=== PATIENT | male | born 1960 | race African-American/Black ===

== ENCOUNTER 2016-05-26 16:08 | Emergency (ER) | payer OTHER ==
[2016-05-26 16:12] VITALS: BP 138/80; PULSE 95; TEMP 98; BMI 29.3
--- NOTE | 2016-05-26 17:13 | PDOC ---
History of Present Illness - General Chief Complaint: Pain Stated Complaint: INJURY Time Seen by Provider: 05/26/16 16:32 History Source: Patient Exam Limitations: No Limitations - History of Present Illness Initial Comments: 05/26/16 17:09 55-year-old male presents to the ED with complaints of thumb pain after playing slots yesterday. Patient states Hitting it on the button and states pain was there yesterday but continues to today and decided come to the ER since every time he bends and opens it, he feels a clicking sound. Patient denies previous injury to the affected area, radiation of pain, sensory changes distal of injury. Patient states history of prediabetes and takes Glucophage daily. Timing/Duration: 24 hours Severity: mild Associated Symptoms: reports: denies symptoms Past History - Past Medical History Allergies/Adverse Reactions: Allergies Allergy/AdvReac Type Severity Reaction Status Date / Time No Known Allergies Allergy Verified 05/26/16 16:13 Home Medications: Ambulatory Orders NK [No Known Home Medication] 05/26/16 Asthma: Yes - Psycho/Social/Smoking Cessation Hx Suicidal Ideation: No Smoking History: Current every day smoker Number of Cigarettes Smoked Daily: 10 Information on smoking cessation initiated: No Patient Lives Alone: No Lives with/in: spouse/SO Review of Systems - Review of Systems Able to Perform ROS?: Yes Constitutional: No: Symptoms Reported ABD/GI: No: Symptoms Reported Musculoskeletal: Yes: Joint Pain (right thumb DIP joint ) Integumentary: No: Symptoms Reported Neurological: No: Symptoms reported Endocrine: No: Symptoms Reported Hematologic/Lymphatic: No: Symptoms Reported *Physical Exam - Vital Signs Last Vital Signs Temp Pulse Resp BP Pulse Ox 98 F 95 H 18 138/80 97 05/26/16 16:10 05/26/16 16:10 05/26/16 16:10 05/26/16 16:10 05/26/16 16:10 - Physical Exam General Appearance: Yes: Nourished, Appropriately Dressed. No: Apparent Distress Extremity: positive: Normal Capillary Refill, Normal Inspection, Normal Range of Motion, Tender (over right DIP joint . Noted clicking with flexion at the DIP joint) Integumentary: positive: Normal Color, Warm, Moist Neurologic: positive: Motor Strength 5/5 (rt hand grasp, ambulatory) ED Treatment Course - RADIOLOGY Radiology Studies Ordered: Category Date Time Status FINGER(S) RIGHT [RAD] Stat Radiology 05/26/16 17:00 Ordered Medical Decision Making - Medical Decision Making 05/26/16 17:17 Patient here with complaints of right thumb injury after playing [place] this [place] last [place]. Patient states pain is worsened with movement but denies pain at rest. Patient exam had tenderness at the DIP but noted clicking with flexion. Patient ordered for x-ray patient offered Motrin but states is comfortable presently 05/26/16 17:47 X-ray negative for acute findings. Patient be placed in metal thumb splint and told to rest for the next 3 days. *DC/Admit/Observation/Transfer Diagnosis at time of Disposition: Pain in thumb joint with movement Qualifiers: Laterality: right Qualified Code(s): M79.644 - Pain in right finger(s) - Discharge Dispostion Disposition: HOME Condition at time of disposition: Good - Referrals Referrals: Eddie Guzmán MD [Primary Care Provider] - - Patient Instructions Printed Discharge Instructions: DI for Finger Sprain Additional Instructions: Please allow your finger to rest wearing the metal splint for the next 2 days during the day and remove it at night. If pain continues greater than 5 days consider follow-up with orthopedist as this may need an MRI.
== END 2016-05-26 17:52 | disposition home or self-care (01) ==
LOC: JERFT 16:08
PROC: 2W3JX1Z Immobilization of Right Finger using Splint (ICD-10-PCS; principal; 2016-05-26)
DX: M79.644 Pain in right finger(s) (principal); M70.841 Other soft tissue disorders related to use, overuse and pressure, right hand; Y93.89 Activity, other specified; Y92.59 Other trade areas as the place of occurrence of the external cause; E11.9 Type 2 diabetes mellitus without complications; Z79.84 Long term (current) use of oral hypoglycemic drugs; J45.909 Unspecified asthma, uncomplicated; F17.210 Nicotine dependence, cigarettes, uncomplicated
CPT/HCPCS: 29130; 73140-TC-RT; 99281-25

== ENCOUNTER 2017-11-08 20:31 | Emergency (ER) | payer OTHER ==
[2017-11-08 20:51] VITALS: BP 145/78; PULSE 98; TEMP 97.9; BMI 28.4
[2017-11-08] MEDS ORDERED: KETOROLAC TROMETHAMINE 60 MG/2 ML VIAL IM ONE (21:27)
[2017-11-08] MEDS ORDERED: KETOROLAC TROMETHAMINE 60 MG/2 ML VIAL ONE (21:31)
--- NOTE | 2017-11-08 21:33 | PDOC ---
History of Present Illness - General Chief Complaint: Wound Stated Complaint: BITE Time Seen by Provider: 11/08/17 21:26 History Source: Patient Exam Limitations: Clinical Condition - History of Present Illness Initial Comments: 11/08/17 21:27 Patient with history of diabetes presenting with complain of insect bite to left thigh area which is now gone and worse with redness to the area and pain with ambulation. Patient reports he thought he had a mosquito bite and he scratched it and now is spread with drainage coming from the site. Denies fever or chills, bodyaches, dizziness. Denies any other symptoms Timing/Duration: 24 hours Past History - Past Medical History Allergies/Adverse Reactions: Allergies Allergy/AdvReac Type Severity Reaction Status Date / Time No Known Allergies Allergy Verified 05/26/16 16:13 Home Medications: Ambulatory Orders Amoxicillin/Potassium Clav [Augmentin 875-125 Tablet] 1 each PO BID 7 Days #14 tablet 11/08/17 Mupirocin Ointment [Bactroban 2% Ointment -] 1 applic TP BID 7 Days #1 tube Asthma: Yes COPD: No Diabetes: Yes - Suicide/Smoking/Psychosocial Hx Smoking History: Current every day smoker Have you smoked in the past 12 months: Yes Number of Cigarettes Smoked Daily: 10 Information on smoking cessation initiated: No Hx Alcohol Use: No Drug/Substance Use Hx: No Substance Use Type: None Review of Systems - Review of Systems Able to Perform ROS?: Yes Is the patient limited [place] proficient: No Constitutional: No: Chills, Diaphoresis, Fever, Loss of Appetite, Malaise, Night Sweats, Weakness, Weight Stable, Unintentional Wgt. Loss, Unexplained wgt Loss, Other HEENTM: No: Eye Pain, Blurred Vision, Tearing, Recent change in vision, Double Vision, Cataracts, Ear Pain, Ocular Prothesis, Ear Discharge, Nose Pain, Nose Congestion, Tinnitus, Nose Bleeding, Hearing Loss, Throat Pain, Throat Swelling , Mouth Pain, Dental Problems, Difficulty Swallowing, Mouth Swelling, Other Respiratory: No: Cough, Orthopnea, Shortness of Breath, SOB with Exertion, SOB at Rest, Stridor, Wheezing, Productive cough, Hemoptysis, Other Cardiac (ROS): No: Chest Pain, Edema, Irregular Heart Rate, Lightheadedness, Palpitations, Syncope, Chest Tightness, Other ABD/GI: No: Abdominal Distended, Abd. Pain w/ defecation, Blood Streaked Bowels , Constipated, Diarrhea, Difficulty Swallowing, Nausea, Poor Appetite, Poor Fluid Intake, Rectal Bleeding, Vomiting, Indigestion, Abdominal cramping, Tarry Stools, Other Musculoskeletal: Yes: Muscle Pain (over right thigh area ) All Other Systems: Reviewed and Negative *Physical Exam - Vital Signs Last Vital Signs Temp Pulse Resp BP Pulse Ox 97.9 F 98 H 20 145/78 100 11/08/17 20:49 11/08/17 20:49 11/08/17 20:49 11/08/17 20:49 11/08/17 20:49 - Physical Exam Comments: 11/08/17 21:29 GENERAL: Well developed, well nourished. Awake and alert. No acute distress. HEENT: Normocephalic, atraumatic. PERRLA, EOMI. No conjunctival pallor. Sclera are non- icteric. Moist mucous membranes. Oropharynx is clear. NECK: Supple. Full ROM. No JVD. Carotid pulses 2+ and symmetric, without bruits. No thyromegaly. No lymphadenopathy. CARDIOVASCULAR: Regular rate and rhythm. No murmurs, rubs, or gallops. Distal pulses are 2+ and symmetric. PULMONARY: No evidence of respiratory distress. Lungs clear to auscultation bilaterally. No wheezing, rales or rhonchi. ABDOMINAL: Soft. Non-tender. Non-distended. No rebound or guarding. No organomegaly. Normoactive bowel sounds. MUSCULOSKELETAL Normal range of motion at all joints. No bony deformities or tenderness. No CVA tenderness. EXTREMITIES: No cyanosis. No clubbing. No edema. No calf tenderness. SKIN: Moderate 1 cm erythema to the lateral side of thigh area with 2 cm induration. No drainage from site NEUROLOGICAL: Alert, awake, appropriate. Cranial nerves 2-12 intact. No deficits to light touch and temperature in face, upper extremities and lower extremities. No motor deficits in the in face, upper extremities and lower extremities. Normoreflexic in the upper and lower extremities. Normal speech. Toes are down- going bilaterally. Gait is normal without ataxia. PSYCHIATRIC: Cooperative. Good eye contact. Appropriate mood and affect. General Appearance: Yes: Nourished, Appropriately Dressed. No: Apparent Distress Medical Decision Making - Medical Decision Making 11/08/17 21:30 Patient presented with erythema and pain to lateral side of right thigh area to scratch and it. Symptoms likely cellulitis. Patient be treated on outpatient basis with dermatology follow-up *DC/Admit/Observation/Transfer Diagnosis at time of Disposition: Cellulitis of thigh - Discharge Dispostion Disposition: HOME Condition at time of disposition: Stable Decision to Admit order: No - Prescriptions Prescriptions: Amoxicillin/Potassium Clav [Augmentin 875-125 Tablet] 1 each PO BID 7 Days #14 tablet Mupirocin Ointment [Bactroban 2% Ointment -] 1 applic TP BID 7 Days #1 tube - Referrals Referrals: Jan Win MD [Non Staff, Medical] - - Patient Instructions Printed Discharge Instructions: DI for Wound Infection Additional Instructions: Take medications as prescribed. Follow up with dermatology if no improvement in 5 days - Post Discharge Activity
== END 2017-11-08 21:38 | disposition home or self-care (01) ==
LOC: JERFT 20:31
PROC: 3E0233Z Introduction of Anti-inflammatory into Muscle, Percutaneous Approach (ICD-10-PCS; principal; 2017-11-08)
DX: L03.116 Cellulitis of left lower limb (principal); E11.9 Type 2 diabetes mellitus without complications; J45.909 Unspecified asthma, uncomplicated
CPT/HCPCS: 96372; 99281-25